=== PATIENT | male | born 1955 | race Caucasian/White ===

== ENCOUNTER 2019-03-11 06:45 | Inpatient (IN) ==
[2019-03-05 19:01] LABS: Estimated Average Glucose(eAG) 137 mg/dL; Hemoglobin A1C 6.4 % HGB (4.0-6.0)
[2019-03-05 19:03] LABS: Blood Urea Nitrogen 21 mg/dl (8-23)
[2019-03-05 19:25] LABS: Basophils # (Auto) 0 K/mcL (0.0-0.3); Basophils % (Auto) 0.6 % (0.0-2.0); Eosinophils # (Auto) 0.3 K/mcL (0.0-0.7); Eosinophils % (Auto) 4.9 % (0.0-7.0); Granulocytes % (Auto) 53.2 % (38.0-78.0); Lymphocytes # (Auto) 2.3 K/mcL (1.5-4.8); Lymphocytes % (Auto) 33.3 % (15.5-49.0); Mean Cell Volume 92.3 fL (80.0-100.0); Mean Corpuscular HGB Conc 32.9 g/dL (31.0-36.0); Monocytes # (Auto) 0.5 K/mcL (0.1-0.9); Platelet Count 297 K/mcL (140-440); RBC 4.67 M/mcL (4.50-5.90); Red Cell Distribution Width 14.7 % (11.5-14.5)
[2019-03-07 17:33] LABS: Appearance,Urine CLEAR; Bacteria,Urine 0 /hpf (0); Bilirubin,Urine NEG (NEG); Color,Urine YELLOW; Glucose,Urine (UA) NEGATIVE (NEG); Leukocyte Esterase,Urine NEG /uL (NEG); Mucus,Urine FEW /hpf (0); Protein,Urine NEG (NEG); Specific Gravity,Urine 1.023 (1.000-1.035); Urine Blood 0.03 mg/dL (<0.03); Urine Budding Yeast FEW /hpf (0); Urine Hyaline Cast 4 /lpf (0-2); Urine RBC 0 /hpf (0-1); Urine Squamous Epithelial Cell 0 /hpf (0-4); Urine WBC 0 /hpf (0-4); Urobilinogen,Urine NEG (NEG)
[~2019-03-11 06:45] MED LIST: SCOPOLAMINE 1 PATCH PATCH TOPICAL ONE
[2019-03-11] MEDS ORDERED: CELECOXIB 200 MG CAPSULE PO SCH (07:00)
[2019-03-11] MEDS ORDERED: 0.9 % SODIUM CHLORIDE 9 ML, KETOROLAC 30 MG, ROPIVACAINE HCL/PF 49.5 ML, EPINEPHrine 0.... IJ SCH (07:00)
[2019-03-11] MEDS ORDERED: PREGABALIN 75 MG CAPSULE PO SCH (07:00)
[2019-03-11] MEDS ORDERED: ceFAZolin 2 GM in DEXTROSE 5% IN WATER 50 ML IV SCH (07:00)
[2019-03-11] MEDS ORDERED: oxyCODONE 10 MG TAB.ER.12H PO SCH (07:00)
[2019-03-11] MEDS ORDERED: ACETAMINOPHEN 500 MG TABLET PO SCH (07:00)
[2019-03-11 08:16] LABS: Appearance,Urine CLEAR; Bacteria,Urine 0 /hpf (0); Bilirubin,Urine NEG (NEG); Color,Urine YELLOW; Glucose,Urine (UA) NEGATIVE (NEG); Leukocyte Esterase,Urine NEG /uL (NEG); Mucus,Urine MANY /hpf (0); Protein,Urine NEG (NEG); Specific Gravity,Urine 1.025 (1.000-1.035); Urine Blood >=1.0 mg/dL (<0.03); Urine RBC < 1 /hpf (0-1); Urine Squamous Epithelial Cell 0 /hpf (0-4); Urine Transitional Epi Cells < 1 /hpf (0-2); Urine WBC 1 /hpf (0-4); Urobilinogen,Urine NEG (NEG)
[2019-03-11] MEDS ORDERED: DEXAMETHASONE 4 MG/ML VIAL IV ONE (11:25)
[2019-03-11] MEDS ORDERED: MIDAZOLAM 2 MG/2 ML VIAL IV ONE (11:25)
[2019-03-11] MEDS ORDERED: LIDOCAINE HCL/PF 100 MG/5 ML SYRINGE IV ONE (11:25)
[2019-03-11] MEDS ORDERED: ROPIVACAINE HCL/PF 20 ML VIAL IJ ONE (11:25)
[2019-03-11] MEDS ORDERED: fentaNYL 250 MCG/5 ML VIAL IV ONE (11:25)
[2019-03-11] MEDS ORDERED: TRANEXAMIC ACID 1,000 MG/10 ML VIAL IV ONE ×2 (11:25→12:57)
[2019-03-11] MEDS ORDERED: ONDANSETRON 4 MG/2 ML VIAL IV ONE (11:25)
[2019-03-11] MEDS ORDERED: PROPOFOL 200 MG/20 ML VIAL IV ONE (11:25)
[2019-03-11] MEDS ORDERED: ePHEDrine 50 MG/ML AMPUL IV ONE (11:25)
[2019-03-11] MEDS ORDERED: KETAMINE 100 MG/ML ML IV ONE (11:25)
[2019-03-11] MEDS ORDERED: GENTAMICIN SULFATE 800 MG/20 ML VIAL IR ONE (12:14)
[2019-03-11] MEDS ORDERED: POLYETHYLENE GLYCOL 3350 17 GM PACKET PO PRN (12:57)
[2019-03-11] MEDS ORDERED: ONDANSETRON 4 MG/2 ML VIAL IV PRN ×2 (12:57→13:17)
[2019-03-11] MEDS ORDERED: BENZOCAINE/MENTHOL 1 LOZENGE PO PRN ×2 (12:57→13:17)
[2019-03-11] MEDS ORDERED: ACETAMINOPHEN 325 MG TABLET PO PRN (12:57)
[2019-03-11] MEDS ORDERED: MAGNESIUM HYDROXIDE 30 ML ORAL.SUSP PO PRN (12:57)
[2019-03-11] MEDS ORDERED: TEMAZEPAM 15 MG CAPSULE PO PRN (12:57)
[2019-03-11] MEDS ORDERED: FLEETS ADULT ENEMA PR PRN (12:57)
[2019-03-11] MEDS ORDERED: BISACODYL 10 MG SUPP.RECT PR PRN (12:57)
--- NOTE | 2019-03-11 12:57 | Brief Operative Note ---
Date of procedure: 03/11/19 Pre-op diagnosis: Left knee severe djd Post-op diagnosis: same Procedure: Left knee TKA Grafts/Implants: Yes Anesthesia: DEMIA Surgeon: Alfredo Earl Reactor Fueling Supervisor: Adan Plummer Estimated blood loss (cc): 20 Tourniquet Time (Minutes): 64 Specimens Removed/Pathology: none sent Condition: stable Disposition: PACU
[2019-03-11] MEDS ORDERED: FUROSEMIDE 20 MG TABLET PO PRN (13:00)
[2019-03-11] MEDS ORDERED: DOXYCYCLINE HYCLATE 50 MG PO PRN (13:00)
[2019-03-11] MEDS ORDERED: NALOXONE HCL 0.4 MG/ML VIAL IV PRN (13:17)
[2019-03-11] MEDS ORDERED: KETOROLAC 15 MG/ML VIAL IV PRN (13:17)
[2019-03-11] MEDS ORDERED: MEPERIDINE 25 MG/ML SYRINGE IV PRN (13:17)
[2019-03-11] MEDS ORDERED: LACTATED RINGERS 250 ML IV PRN (13:17)
[2019-03-11] MEDS ORDERED: HYDROmorphone 2 MG/ML VIAL IV PRN (13:17)
[2019-03-11] MEDS ORDERED: IPRATROPIUM/ALBUTEROL 3 ML AMPUL.NEB NEB PRN (13:17)
[2019-03-11] MEDS ORDERED: FLUMAZENIL 0.1 MG/ML ML IV PRN (13:17)
[2019-03-11] MEDS ORDERED: diphenhydrAMINE 50 MG/ML VIAL IV PRN (13:17)
[2019-03-11] MEDS ORDERED: PROMETHAZINE 25 MG/ML VIAL IV PRN (13:17)
--- NOTE | 2019-03-11 13:17 | Operative Note ---
DATE OF OPERATION: 03/11/2019 PREOPERATIVE DIAGNOSIS: Left knee severe degenerative arthritis. POSTOPERATIVE DIAGNOSIS: Left knee severe degenerative arthritis. PROCEDURE: Left total knee arthroplasty using the Enrrique robot. SURGEON: Alfredo Earl M.D. CLIENT RELATIONSHIP MANAGER: Adan Plummer PA-C. ANESTHESIA: General LMA anesthesia. COMPLICATIONS: None. TOURNIQUET TIME: 64 minutes. BLOOD LOSS: 20 mL. DESCRIPTION OF PROCEDURE: The patient was brought to the operating room and put to sleep with general LMA anesthesia. Once asleep, the patient had the left leg sterilely prepped and draped in the usual sterile fashion. A timeout had been performed, and we then confirmed the operative site. Ioban over the skin. Midline incision made and a midvastus approach created. Through this we inspected all the knee, showing a severely deformed knee. We then proceeded with removing osteophytes, placing pins above and below the knee. We registered the center of hip rotation, registered the medial and lateral malleoli, registered thirty points on the femur and the tibia. We balanced the knee at 15 degrees and 90 degrees. Once completely balanced, we irrigated thoroughly and then brought in the robot, registered the robot and made the bony cuts. We removed the spurs posteriorly and the fragments that we had cut. We removed the remnants of the meniscus as well. We then trialed the components that we had templated. The final poly was an 11 mm deep dish poly with a 4 tibial baseplate, size 4 femur with a 36 mm patellar button. The patella measured 24 mm total thickness. This was cut to 14 mm and then placed the 36 mm patellar button, making a small chamfer laterally. We then cemented into place the above-mentioned components, removing any excess cement, taking care to keep the knee at 45 degrees until cement was dry and hardened. We irrigated thoroughly and closed the vastus approach with #1 Stratafix x2 sutures. We closed the skin with #1 Stratafix and 2-0 Vicryl and adhesive closure. Sterile bandage was applied. Tourniquet deflated at 64 minutes. Blood loss was 20 mL. RBH:dennys Job ID: [id number] Doc ID: [id number] Alfredo Earl MD
[2019-03-11] MEDS ORDERED: IPRATROPIUM/ALBUTEROL 3 ML AMPUL.NEB NEB ONE (13:21)
[2019-03-11] MEDS ORDERED: LACTATED RINGERS 1,000 ML IV SCH (13:30)
[2019-03-11] MEDS ORDERED: KETOROLAC 30 MG/ML VIAL ONE (13:45)
[2019-03-11] MEDS: fentaNYL 100 MCG/2 ML VIAL IV PRN ×4 (13:48→13:56)
[2019-03-11] MEDS: 0.9 % SODIUM CHLORIDE 10 ML SYRINGE IV SCH (14:17)
[2019-03-11] MEDS: morphine 15 MG TAB.SR.12H PO SCH ×3 (14:20→21:55)
[2019-03-11] MEDS: HYDROmorphone 2 MG/ML VIAL IV PRN ×2 (14:25→15:16)
--- NOTE | 2019-03-11 14:55 | XRay Report ---
CLINICAL INFORMATION: Post-Op Total Knee COMPARISON: 01/04/2019 preoperative film FINDINGS: Total knee prostheses is anatomically aligned. No osseous abnormality. Periarticular soft tissue swelling seen as expected IMPRESSION: Negative Interpreted and Authenticated by: Jhonny Luis 03/11/19
[2019-03-11] MEDS: 0.45 % SODIUM CHLORIDE 1,000 ML IV SCH (15:01)
[2019-03-11] MEDS: metFORMIN 500 MG TABLET PO SCH (17:21)
[2019-03-11] MEDS: ceFAZolin 1 GM VIAL IV SCH (17:56)
[2019-03-11] MEDS: KETOROLAC 15 MG/ML VIAL IV SCH (17:56)
[2019-03-11] MEDS ORDERED: SENNOSIDES 1 TABLET PO SCH (21:00)
[2019-03-11] MEDS ORDERED: ATORVASTATIN 20 MG TABLET PO SCH (21:00)
[2019-03-11] MEDS: ASPIRIN 325 MG ENTERIC COATED TABLET PO SCH (21:19)
[2019-03-11] MEDS: DOCUSATE SODIUM 100 MG CAPSULE PO SCH (21:19)
[2019-03-12] MEDS: 0.45 % SODIUM CHLORIDE 1,000 ML IV SCH ×2 (00:15→14:37)
[2019-03-12] MEDS: 0.9 % SODIUM CHLORIDE 10 ML SYRINGE IV SCH ×4 (00:16→13:56)
[2019-03-12] MEDS: KETOROLAC 15 MG/ML VIAL IV SCH ×3 (00:17→12:23)
[2019-03-12] MEDS: morphine 15 MG TAB.SR.12H PO SCH ×4 (00:24→13:52)
[2019-03-12] MEDS: ceFAZolin 1 GM VIAL IV SCH (02:26)
[2019-03-12] MEDS: HYDROmorphone 2 MG/ML VIAL IV PRN ×2 (06:56→12:22)
[2019-03-12] MEDS ORDERED: LEVOTHYROXINE 50 MCG TABLET PO SCH (07:30)
[2019-03-12] MEDS ORDERED: METHOCARBAMOL 750 MG TABLET PO PRN (07:40)
--- NOTE | 2019-03-12 07:51 | Orthopedic Progress Note ---
Subjective Patient information: Note initiated : 03/12/19 at 7:50 am Service Date, if different from initiated Date: [] Patient: Ruperto Castellon 64 y/o M admitted on 03/11/19 for Left Total Knee Arthroplasty Enrrique . Chief Complaint: [Pt is stable this morning on post operative day 1 without any significant concerns or complaints. Patients vital signs have remained stable. Patients dressing is dry and is grossly intact from a neurovascular and motor standpoint. Patients 10 point ROS is otherwise negative. ] Objective Vital signs: Vital Signs Temp Pulse Resp BP BP Pulse Ox 03/12/19 06:55 98.9 F 92 H 16 99/59 95 03/12/19 02:33 98.9 F 84 20 102/67 92 03/12/19 00:02 98.8 F 68 20 103/65 93 03/11/19 19:09 98.8 F 86 22 106/69 90 03/11/19 16:30 93 03/11/19 16:10 78 126/69 96 03/11/19 15:40 79 115/74 95 03/11/19 15:10 74 131/70 94 03/11/19 14:55 75 125/71 95 03/11/19 14:40 72 121/76 93 03/11/19 14:25 71 129/84 93 03/11/19 14:22 88 L 03/11/19 14:10 97.5 F 79 125/70 95 03/11/19 14:00 99.2 F H 77 12 117/86 94 03/11/19 13:45 98.3 F 78 16 131/69 98 03/11/19 13:30 98.4 F 79 18 136/63 97 03/11/19 13:25 72 18 146/86 99 03/11/19 13:20 75 17 114/79 99 03/11/19 13:15 98.2 F 72 17 110/62 95 Intake and Output 03/11/19 03/12/19 03/12/19 21:59 05:59 13:59 Intake Total 450 Output Total 450 800 Balance -450 -350 Intake: Oral 450 Output: Void Amount 450 800 Other: Meal Dinner Percent of Meal Consumed 100% Urine Appearance Clear Clear Urine Color Bright Yellow Pale Urine Odor Normal Weight 211 lb 9.6 oz Intake & Output: Intake & Output 03/11/19 03/12/1919 21:59 05:59 13:59 Intake Total 450 Output Total 450 800 Balance -450 -350 Weight 211 lb 9.6 oz Intake: Oral 450 Output: Void Amount 450 800 Other: Meal Dinner Percent of Meal Consumed 100% Urine Appearance Clear Clear Urine Color Bright Yellow Pale Urine Odor Normal Incision: Yes healing Incision clean and dry: Yes Dressing: Yes clean Weight bearing status: full Neurological exam IM: Yes motor sensory intact, Yes neurovascular intact Extremities exam IM: Yes Foot pink and warm, Yes neurovascular intact - Labs CBC & BMP: 03/12/19 04:16 03/05/19 16:07 Labs: Orthopedic Labs 03/05/19 16:07 PT 13.0 INR 1.0 APTT 32 03/12/19 03/05/19 04:16 16:07 Hgb 14.2 Hct 40.9 L 43.1
--- NOTE | 2019-03-12 07:53 | Discharge Summary ---
Ortho Discharge - TKA - Patient Instructions Diet: Regular Diet Activity: activity as tolerated, weight bearing as tolerated Total Knee Protocol: For Total Knee: Start ROM MARCIAL with stationary bike or rocking chair. Work on gaining full extension of knee. Posterior dislocation precautions provided. Hip abductor strengthening and gait training instructions provided. Apply Cryocuff as instructed. Dressing Care: May shower in 2 days - Follow Up Plan Follow Up Appointments: Adan Plummer PA-C [Physician Manager Medical] - 03/26/19 2:20 pm Disposition: Home, Self-Care Prognosis: Good Rehab Potential: Good I certify that the patient requires SNF services: No Overall status at discharge: patient is progressing back to baseline - Orders For Discharge Prescriptions: Aspirin [Ecotrin] 325 mg PO BID #60 tab.ec Docusate Sodium [Colace] 100 mg PO BID #60 cap oxyCODONE/APAP [Percocet 5-325 mg] 1 - 2 tab PO Q4HP PRN #75 tab PRN Reason: Pain Level 3-6
[2019-03-12] MEDS: ASPIRIN 325 MG ENTERIC COATED TABLET PO SCH (08:54)
[2019-03-12] MEDS: DOCUSATE SODIUM 100 MG CAPSULE PO SCH (08:55)
[2019-03-12] MEDS ORDERED: HYDROCHLOROTHIAZIDE 12.5 MG CAPSULE PO SCH (09:00)
[2019-03-12] MEDS ORDERED: LISINOPRIL 20 MG TABLET PO SCH (09:00)
[2019-03-12] MEDS ORDERED: SERTRALINE 50 MG TABLET PO SCH (09:00)
[2019-03-12] MEDS ORDERED: buPROPion 150 MG TAB.XL.24H PO SCH (09:00)
[2019-03-12] MEDS: metFORMIN 500 MG TABLET PO SCH (09:08)
[2019-03-12] MEDS: oxyCODONE/APAP 5/325MG TABLET PO PRN ×2 (09:42→15:06)
== END 2019-03-12 16:16 | disposition home or self-care (01) | DRG 470 ==
LOC: MEDSUR 06:45
PROVIDERS: ADMIT Orthopaedic Surgery; ATTEND Orthopaedic Surgery